=== PATIENT | male | born 1970 | race Caucasian/White ===

== ENCOUNTER 2018-01-11 17:12 | Observation (INO) ==
--- NOTE | 2018-01-11 17:31 | Emergency Department Note ---
Disposition Clinical Impression: Heat cramp, initial encounter, Heat syncope, initial encounter, Severe dehydration, Hyperglycemia, Acute kidney injury Disposition: Admitted As Inpatient Condition: Fair Referrals: Seble Toney, [facility] [Primary Care Provider] - Forms: ED Satisfaction Letter Time of Disposition: 22:08 Syncope HPI - General Chief Complaint: ED Syncope Stated Complaint: got too hot Time Seen by Provider: 01/11/18 17:21 Source: patient Mode of arrival: private vehicle Limitations: no limitations Nursing Notes Reviewed: Yes Vital Signs Reviewed: Yes - History of Present Illness HPI Narrative: 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 Direct sun exposure through the course of day. 4 an hour he was babbling back and forth. He felt overheated and felt lightheaded so he stopped working said down to break try to get up to go back to work but got ill again and soles we tried to stand back up and actually passed out. He states he blacked out a couple times. By time he got here to the emergency department he threw up. He was brought inside into the cold environment says that after throwing up and being in the: He now feels markedly better and back to normal. He denies having been sick in any way over the past few days. His Accu-Chek on arrival elevated above 300 but he states that he sugars been running in the 200s as recently as this morning. Pt Subjective Complaint: loss of consciousness Onset (ago): Just [employer] Number of episodes: 3 Duration: second(s) Prodromal Symptoms: lightheaded Witnessed: yes - by bystander Context: during exertion Injuries Sustained Associated with Event: none Current Symptoms: none Treatments prior to arrival: none Associated trauma secondary to event: No - Related Data Home Medications Medication Instructions Recorded Confirmed Aspirin [Adult Low Dose Aspirin EC] 81 mg PO QAM 08/25/15 01/11/18 Escitalopram [Lexapro] 10 mg PO QAM 08/25/15 01/11/18 Omeprazole [PriLOSEC] 20 mg PO QAM 08/25/15 01/11/18 Valacyclovir HCl [Valtrex] 1,000 mg PO DAILY PRN 08/25/15 01/11/18 Previous Rx's Medication Instructions Recorded Insulin DETEMIR [Levemir] 10 unit SQ BID 30 Days [id number] 08/28/15 Allergies Allergy/AdvReac Type Severity Reaction Status Date / Time iodine Allergy Swelling Verified 04/22/17 08:45 of Lip/Tongue/Throat hydrocodone [From Vicodin] AdvReac Hives Verified 04/22/17 08:46 Hydromorphone [From Dilaudid] AdvReac Nausea Verified 04/22/17 08:46 All systems ED: reviewed and negative except as stated. Constitutional: Denies: fever ENT ED: Denies: ear pain, throat pain, congestion Cardiovascular: Denies: chest pain, palpitations Respiratory: Denies: cough, dyspnea, wheezes Gastrointestinal: Reports: vomiting. Denies: abdominal pain, diarrhea Musculoskeletal: Reports: other (Patient had muscle cramps in his legs prior to arrival) Integumentary: Denies: rash Neurological: Reports: headache (He has some headache but that better) Past Medical History - Past Medical History Attestation: Yes The following information was validated with the patient. Source: patient, nursing notes reviewed Medical history: Reports: diabetes, GERD, hypertension Surgical history: Reports: appendectomy, herniorrhaphy Psychiatric history: Reports: depression - Social History Smoking Status: Never smoker Smokeless Tobacco Status: No Alcohol use: Reports: none Drug use: Reports: none Physical Exam - General Limitations: no limitations General appearance: alert, in no apparent distress - Head Head exam: atraumatic, normocephalic, normal inspection - Eye Eye exam: Present: normal appearance, PERRL, EOMI. Absent: scleral icterus, conjunctival injection - ENT ENT exam: normal exam, normal oropharynx, mucous membranes moist, normal external ear exam - Neck Neck exam: Present: normal inspection, full ROM - Chest Chest inspection: Present: normal inspection, symmetric chest wall rise. Absent : tenderness - Respiratory Respiratory exam: Present: normal lung sounds bilaterally. Absent: respiratory distress, wheezes - Cardiovascular Cardiovascular exam: Present: normal rhythm, tachycardia, normal heart sounds - Abdominal Exam Abdominal exam: Present: soft, Non-Tender, normal bowel sounds - Extremities Exam Extremities exam: Present: normal inspection, full ROM. Absent: pedal edema - Neurological Exam Neurological exam: Present: alert, oriented X3. Absent: motor sensory deficit - Psychiatric Psychiatric exam: Present: normal affect, normal mood - Skin Skin exam: Present: warm, dry. Absent: rash Course Course Narrative: Patient presents with what sounds like heat related illness. He had he syncope after dealing with heat cramps and heat exhaustion symptoms. Not is in a cool environment and has vomited, he feels better. He is little bit tachycardic but his vital signs are otherwise fine. Nothing in his story gives any description of an acute cardiac event. He is worked hard like this every day for the past couple weeks and has not had to slow down due to chest pain or shortness of breath or syncope or weakness. I think today's event was purely related to the heat to the working in the sun and may be aggravated by the fact that her sugars have been running high. I am going to given 3 L of saline and check some labs. The labs are good and he does well with the IV fluids he be discharged home. Disposition will be based on the diagnostic results and reevaluation. - Reevaluation(s) Reevaluation #1: Patient's labs came back showing significant elevation of creatinine above baseline. He is 2.4 for creatinine when his baseline is 0.8. Also his glucose is 445. He is severely dehydrated and is probably, located by the fact that he is been hyperglycemic for more than a few days. I feel he needs to be admitted to the hospital because he is going to require more hydration that I can give him in just a couple hours here in the emergency department. I spoke to the hospitalist, Dr. Smalls accepted patient for admission. We will continue IV fluids overnight. Time: 19:08 Reevaluation #2: Turns out we do not have any beds in the hospital to admit this patient to. We do not have the capacity to do an ER hold on this patient either. We talked to the transfer center at [facility] in [place]. They recommended transferring patient to the ER because they think one of their hold beds will open up. I spoke with Dr. Pedro and discussed the situation and the case and the patient's clinical course with her. She is accepted patient for transfer to the ER. I informed the patient of this. He is happy because he from [place] and his his there. Time: 19:44 Reevaluation #3: I have had a couple conversations with the hospitalist over at [place]. Apparently it was a mistake to discuss the case with the ER physician, Dr. Pedro. The transfer center called back and had me talk to the hospitalist. Hospitalist after hearing the story was actually concern of the Naresh might actually be in diabetic ketoacidosis. He asked me to order some more labs because if the patient's ketone level was high he thought he might need an insulin drip and thus there would be no beds available at [facility] for this patient. I did an ABG and the serum ketones. The patient was not acidotic on the ABG with a pH of 7.37. He is not tachypneic. The bicarbonate on his Chem-7 is normal. Serum ketones were elevated at 1.2 and he does have an anion gap of 14 from the initial blood work. However the elevated keep tones and the anion gap can be because of the kidney functions and dehydration. The patient does not present like a diabetic ketoacidosis. He is not acidotic on the gas ordered a Chem-7. We have given him 3 L of fluid and he feels better although he still feels worn out. He is not vomiting. After the 3 L of fluid and 8 of subcutaneous regular insulin, his Accu-Chek is down to 300. Patient was not accepted for transfer by the hospitalist and [facility] due to lack of bed availability for what he presumed was diabetic ketoacidosis. However the patient story is one clearly of heat related illness superimposed on chronic hyperglycemia of his diabetes but he clinically does not act like diabetic ketoacidosis. I went ahead and called Dr. Smalls back and discussed the case with him. We went over the labs and we will over the patient's treatment and we went over the patient's current clinical status. Dr. Smalls feels comfortable admitting the patient here to a [facility] bed for hydration and rechecking of labs at this time. If everything corrects with the hydration then he can be discharged to home. If he actually does start to more clearly show DKA, then we will initiate management of that. I explained to the patient why all the back and forth to place so that he understands what is going on. He is comfortable with the current plan. Time: 22:08 Vital Signs Temperature 96.6 F L 01/11/18 17:16 Pulse Rate 107 01/11/18 17:16 Respiratory Rate 18 01/11/18 17:16 Blood Pressure 124/76 01/11/18 17:16 O2 Sat by Pulse Oximetry 95 01/11/18 17:16 Temperature 96.6 F L 01/11/18 17:16 Pulse Rate 108 01/11/18 21:05 Respiratory Rate 25 01/11/18 21:05 Blood Pressure 115/65 01/11/18 21:05 O2 Sat by Pulse Oximetry 91 01/11/18 21:05 Oxygen Delivery Oxygen Delivery Room Air Syncope - Lab Data Lab results reviewed: Yes I reviewed the patient's lab results. Result diagrams: 01/11/18 17:37 01/11/18 17:37 Lab Results 01/11/18 01/11/18 01/11/18 Range/Units 17:24 17:27 17:37 WBC 16.2 H (4.3-11.1) K/mcL RBC 5.63 H (4.19-5.50) M/mcL Hgb 16.4 (12.9-16.9) g/dL Hct 47.9 (37.5-50.1) % MCV 85.1 (83.0-100.0) fL MCH 29.1 (28.0-33.3) pg MCHC 34.2 (31.6-35.5) g/dL RDW 12.5 (11.5-14.5) % Plt Count 308 (140-400) K/mcL MPV 10.5 (9.4-12.4) fL Immature Gran % 0.7 (0-4) % Seg Neutrophils % 86.0 % Lymphocytes % 6.3 % Monocytes % 6.8 % Eosinophils % 0.0 % Basophils % 0.2 % Neutrophils # 13.9 H (1.6-8.9) K/mcL Lymphocytes # 1.0 (0.6-4.6) K/mcL Monocytes # 1.1 (0.0-1.3) K/mcL Eosinophils # 0.0 (0.0-0.6) K/mcL Basophils # 0.0 (0.0-0.2) K/mcL Nucleated RBCs/100 WBC 0.2 H (0) /100 WBC Platelet Estimate Normal (Normal) Anisocytosis 1+ A (Not Present) Sample Site ABG pH (7.32-7.45) pH Units ABG pCO2 (35-45) mmHg ABG pO2 (85-104) mmHg ABG HCO3 (21-27) mEq/L ABG Total CO2 (20-26) mEq/L ABG O2 Saturation (95-98) % ABG Base Excess (-2 to 3) mEq/L Angel Test O2 Delivery Device Sodium (136-145) mEq/L Potassium (3.5-5.1) mEq/L Chloride (98-107) mEq/L Carbon Dioxide (23-29) mEq/L BUN (6-20) mg/dL Creatinine (0.70-1.30) mg/dL Est GFR ( Amer) (> 60) Est GFR (Non-Af Amer) (> 60) BUN/Creatinine Ratio (6-26) Glucose (70-105) mg/dL POC Glucose 367 H 336 H (70-99) mg/dL Calculated Osmolality (280-300) Calcium (8.6-10.3) mg/dL Beta-Hydroxybutyric Acd (0.02-0.27) mmol/L 01/11/18 01/11/18 01/11/18 Range/Units 17:37 17:37 20:45 WBC (4.3-11.1) K/mcL RBC (4.19-5.50) M/mcL Hgb (12.9-16.9) g/dL Hct (37.5-50.1) % MCV (83.0-100.0) fL MCH (28.0-33.3) pg MCHC (31.6-35.5) g/dL RDW (11.5-14.5) % Plt Count (140-400) K/mcL MPV (9.4-12.4) fL Immature Gran % (0-4) % Seg Neutrophils % % Lymphocytes % % Monocytes % % Eosinophils % % Basophils % % Neutrophils # (1.6-8.9) K/mcL Lymphocytes # (0.6-4.6) K/mcL Monocytes # (0.0-1.3) K/mcL Eosinophils # (0.0-0.6) K/mcL Basophils # (0.0-0.2) K/mcL Nucleated RBCs/100 WBC (0) /100 WBC Platelet Estimate (Normal) Anisocytosis (Not Present) Sample Site R Radial ABG pH 7.37 (7.32-7.45) pH Units ABG pCO2 36 (35-45) mmHg ABG pO2 66 L (85-104) mmHg ABG HCO3 21 (21-27) mEq/L ABG Total CO2 22 (20-26) mEq/L ABG O2 Saturation 92 L (95-98) % ABG Base Excess -4 L (-2 to 3) mEq/L Angel Test Positive O2 Delivery Device Room Air Sodium 135 L (136-145) mEq/L Potassium 4.0 (3.5-5.1) mEq/L Chloride 96 L (98-107) mEq/L Carbon Dioxide 25 (23-29) mEq/L BUN 25 H (6-20) mg/dL Creatinine 2.37 H (0.70-1.30) mg/dL Est GFR ( Amer) 36 L (> 60) Est GFR (Non-Af Amer) 30 L (> 60) BUN/Creatinine Ratio 11 (6-26) Glucose 448 H (70-105) mg/dL POC Glucose (70-99) mg/dL Calculated Osmolality 304 H (280-300) Calcium 10.0 (8.6-10.3) mg/dL Beta-Hydroxybutyric Acd 1.27 H (0.02-0.27) mmol/L
[2018-01-11 17:43] LABS: Basophils % 0.2 %; Hematocrit 47.9 % (37.5-50.1); Hemoglobin 16.4 g/dL (12.9-16.9); Immature Granulocytes % 0.7 % (0-4); Lymphocytes % 6.3 %; Mean Corpuscular HGB Conc 34.2 g/dL (31.6-35.5); Mean Corpuscular Hemoglobin 29.1 pg (28.0-33.3); Mean Corpuscular Volume 85.1 fL (83.0-100.0); Mean Platelet Volume 10.5 fL (9.4-12.4); Monocytes % 6.8 %; Nucleated Red Blood Cells 0.2 /100 WBC (0); Platelet Count 308 K/mcL (140-400); Red Blood Count 5.63 M/mcL (4.19-5.50); Red Cell Distribution Width 12.5 % (11.5-14.5)
[2018-01-11] MEDS: 0.9 % Sodium Chloride 1,000 ML IVC SCH ×4 (17:53→23:23)
[2018-01-11 18:58] LABS: Anisocytosis 1+ (Not Present); Platelet Estimate Normal (Normal)
[2018-01-11] MEDS ORDERED: Insulin Regular, Human 100 UNIT/ML SQ ONE (19:11)
[2018-01-11 20:03] LABS: Monocytes # 1.1 K/mcL (0.0-1.3); Neutrophils # 13.9 K/mcL (1.6-8.9)
[2018-01-11] MEDS ORDERED: 0.9 % Sodium Chloride 1,000 ML IVC SCH (20:30)
[2018-01-11 20:48] LABS: ABG Base Excess -4 mEq/L (-2 to 3); ABG HCO3 21 mEq/L (21-27); ABG Oxygen Saturation 92 % (95-98); ABG PCO2 36 mmHg (35-45); ABG PH 7.37 pH Units (7.32-7.45); ABG PO2 66 mmHg (85-104); ABG TCO2 22 mEq/L (20-26)
[2018-01-11 22:10] LABS: Bilirubin,Urine Negative (Negative); Blood,Urine Negative (Negative); Clarity,Urine Clear (Clear); Color,Urine Yellow (Yellow); Glucose,Urine (UA) 500 mg/dL (Normal); Ketones,Urine 15 mg/dL (Negative); Leukocyte Esterase,Urine Negative (Negative); Nitrite,Urine Negative (Negative); PH,Urine 5.5 pH Units (5.0-8.0); Protein,Urine Trace mg/dL (Neg-Trace); Urobilinogen,Urine Normal (Normal)
[2018-01-11] MEDS ORDERED: Naloxone 0.4 MG/ML INJ IVP PRN (22:33)
[2018-01-11] MEDS ORDERED: Insulin DETEMIR 100 UNIT/ML per UNIT SQ ONE (23:00)
[2018-01-12] MEDS: 0.9 % Sodium Chloride 1,000 ML IVC SCH ×3 (04:22→11:04)
[2018-01-12 05:37] LABS: BUN/Creatinine Ratio 18 (6-26); Blood Urea Nitrogen 19 mg/dL (6-20); Calcium 8.5 mg/dL (8.6-10.3); Carbon Dioxide 22 mEq/L (23-29); Chloride 104 mEq/L (98-107); Glucose 335 mg/dL (70-105); Osmolality,Calculated 295 (280-300); Potassium 3.6 mEq/L (3.5-5.1); Sodium 135 mEq/L (136-145); eGFR For African Americans > 60 (> 60); eGFR For Non-African Americans > 60 (> 60)
[2018-01-12] MEDS ORDERED: Aspirin Enteric Coated 81 MG Tablet PO SCH (09:00)
[2018-01-12] MEDS ORDERED: Insulin DETEMIR 100 UNIT/ML X5UNITS SQ SCH (09:00)
[2018-01-12] MEDS ORDERED: *HR* Dextrose 50 % in Water (Syg) 50 ML SYRINGE IVP PRN (09:47)
[2018-01-12] MEDS ORDERED: D5% in Water 1,000 ML IVC PRN (09:47)
[2018-01-12] MEDS ORDERED: Dextrose Gel 15 GM/37.5 ML TUBE PO PRN ×2 (09:47)
[2018-01-12 11:26] VITALS: BP 150/82
[2018-01-12] MEDS ORDERED: Insulin LISPRO 300 UNITS/3 ML VIAL SQ SCH ×2 (11:30→21:00)
[2018-01-12] MEDS ORDERED: Acetaminophen 325 MG TABLET PO ONE (12:18)
--- NOTE | 2018-01-12 12:23 | Internal Med History&Physical ---
Date of Encounter: 01/12/18 Time of Encounter: 11:45 Assessment and Plan (1) Heat exhaustion Current visit: Yes Status: Acute Now resolved following administration of IV fluids and oral food/water intake. Qualifiers: Encounter type: initial encounter Qualified Code(s): T67.5XXA - Heat exhaustion, unspecified, initial encounter (2) Acute kidney injury Current visit: Yes Status: Acute Creatinine was elevated 2.37 in emergency room. It has normalized at 1.04 now following administration of IV fluids. (3) Diabetes mellitus Current visit: No Status: Chronic Blood sugar in emergency room was 448. Hemoglobin A1c on 12/02/2017 was 12.9. His PCP can adjust medications as needed including consideration of ACEI/ARB for diabetic renal protection. 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 Singleton is a 47 year old male who came to emergency room after developing heat exhaustion while working outside on [employer]. He reports he had drunk water but had not eaten for many hours. He states he became "overheated and confused". He had 2-3 syncopal episodes while trying to arise after resting on the ground. He was evaluated in emergency room and found to have leukocytosis with left shift, acute renal failure, ketosis and hyperglycemia. He was admitted to [facility] floor for ongoing care needs. He states he feels back to his baseline now. He has had no further vomiting denies pain or diarrhea. He has tolerated breakfast without difficulty. He has ambulated to the bathroom without feeling lightheaded. He reports a previous episode of heat exhaustion many years ago. Past Med Surg Social Fam HX - Past Medical History Medical history: diabetes, GERD, hypertension Psychiatric history: depression - Past Surgical History Surgical History: appendectomy, herniorrhaphy Additional surgical history: left knee surgery, right ankle surgery - Social History Smoking Status: Never smoker Smokeless Tobacco Status: No Alcohol use: none Drug use: none - Family History Mother Hx Family Musculoskeletal Disorders: Yes (MS) Father Hx Family Endocrine Disorder: Yes (DM) Internal Medicine - H&P: Meds Aspirin [Adult Low Dose Aspirin EC] 81 mg PO QAM 08/25/15 [History] Escitalopram [Lexapro] 10 mg PO QAM 08/25/15 [History] Omeprazole [PriLOSEC] 20 mg PO QAM 08/25/15 [History] Valacyclovir HCl [Valtrex] 1,000 mg PO DAILY PRN 08/25/15 [History] Insulin DETEMIR [Levemir] 10 unit SQ BID 30 Days [id number] 08/28/15 [Rx] 3 Allergy/AdvReac Type Severity Reaction Status Date / Time iodine Allergy Swelling Verified 04/22/17 08:45 of Lip/Tongue/Throat hydrocodone [From Vicodin] AdvReac Hives Verified 04/22/17 08:46 Hydromorphone [From Dilaudid] AdvReac Nausea Verified 04/22/17 08:46 All Systems PM: A 10-system review of systems was performed and is negative for pertinent findings except as documented above in the HPI. Review of systems: Gen.: He states his weight has been stable for several months Cardiovascular: He has history of hypertension intermittently at PCP office visits. He is not presently taking antihypertensive medication. He denies VT heart failure angina DVT or pulmonary embolus Respiratory: He is a lifelong nonsmoker and has no known chronic lung disease GI: He had appendectomy with complications many years ago. He has GERD. He denies disorders of his liver or exocrine pancreas. : He has occasional BPH symptoms. He denies other kidney bladder prostate disorders. Neurologic: He had syncopal episodes as per history of present illness. He denies large distribution strokes or seizures. Endocrine: He was diagnosed with DM 2 approximately 2013. He uses Humalog SSI. He has history of hyperlipidemia but is not on medication at this time. He denies thyroid disease. Hematology/oncology: He denies blood disorders cancers or anemia Psychiatric: He has depression. He denies anxiety other mental health issues Musko skeletal: He had left knee arthroscopic meniscal repair May 2017. He has had remote ankle surgery. He denies other bone joint or muscle disorders. - Constitutional Vitals: Temp Pulse Resp BP Pulse Ox 98.3 F 94 16 150/82 96 01/12/18 11:20 01/12/18 11:20 01/12/18 11:20 01/12/18 11:20 01/12/18 11:20 Exam: Gen.: He is a well-developed overweight male lying comfortably in bed who appears in no acute distress. HEENT: Head is atraumatic and normal cephalic. Eyes: EOMI. There is no scleral icterus. Mouth: Mucosa is moist. Neck: Supple and nontender. There is no thyromegaly or adenopathy noted. Heart: Regular without murmurs gallops or ectopics Lungs: No wheezes or crackles are heard. Abdomen: Soft and nontender. No masses or guarding are noted. Extremities: There is no cyanosis edema or clubbing noted. Dorsalis pedis and posterior tibial pulses are 1-2 over 2 bilaterally. Neurologic: Mental status: He is talkative and a good historian. Cranial nerves : Smile is symmetric. Forehead wrinkles bilaterally. Tongue protrudes midline. EOMI. Motor: There is no pronator drift. Cerebellar: Finger to nose is intact bilaterally. Skin: Warm and dry Internal Med - H&P Results - Labs CBC & Chem 7: 01/11/18 17:37 01/12/18 04:51 Labs: BMP 01/12/18 04:51 Sodium 135 L Potassium 3.6 Chloride 104 Carbon Dioxide 22 L BUN 19 Creatinine 1.04 Glucose 335 H Calcium 8.5 L
--- NOTE | 2018-01-12 12:37 | Discharge Summary ---
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 Singleton is a 47 year old male who came to emergency room after developing heat exhaustion while working outside on [employer]. He reports he had drunk water but had not eaten for many hours. He states he became "overheated and confused". He had 2-3 syncopal episodes while trying to arise after resting on the ground. He was evaluated in emergency room and found to have leukocytosis with left shift, acute renal failure, ketosis and hyperglycemia. He was admitted to [facility] for ongoing care needs. Initial orders were written by the emergency room physician. I saw him on January 12 and performed a history physical and discharge. He received IV fluids for heat exhaustion. He had no further vomiting after admission. Creatinine normalized 1.04 by the following day. He remained afebrile and had adequate intake of food and fluids. On January 12 he felt stable for discharge home. He will follow with his PCP within 1 week. She can address poorly controlled DM 2 including ACEI/ARB and initiation of additional medication for blood sugar control. - Time Spent with Patient Total time spent providing and/or coordinating discharge services: - Discharge Medications Home Medications: Aspirin [Adult Low Dose Aspirin EC] 81 mg PO QAM 08/25/15 [History] Escitalopram [Lexapro] 10 mg PO QAM 08/25/15 [History] Omeprazole [PriLOSEC] 20 mg PO QAM 08/25/15 [History] Allergies/Adverse Reactions: 3 Allergy/AdvReac Type Severity Reaction Status Date / Time iodine Allergy Swelling Verified 04/22/17 08:45 of Lip/Tongue/Throat hydrocodone [From Vicodin] AdvReac Hives Verified 04/22/17 08:46 Hydromorphone [From Dilaudid] AdvReac Nausea Verified 04/22/17 08:46 Date of admission: 01/11/18 22:32 Primary care physician: Seble Toney CNP - Constitutional Vitals: Temp Pulse Resp BP Pulse Ox 98.3 F 94 16 150/82 96 01/12/18 11:20 01/12/18 11:20 01/12/18 11:20 01/12/18 11:20 01/12/18 11:20 - Patient Status Disposition: Home, Self-Care Condition: Fair Overall status at discharge: patient is progressing back to baseline - Discharge Instructions Follow Up With: Seble Toney CNP [Primary Care Provider] - 1 week Forms: Inpatient Work/School Release - Diet and Activity Activity: resume usual activities as tolerated Diet: diabetic diet
== END 2018-01-12 13:55 | disposition home or self-care (01) ==
LOC: INPPIK 17:12 → EMEROOPIK 17:12 → INPPIK 22:10
PROVIDERS: ADMIT Internal Medicine; ATTEND Internal Medicine